=== PATIENT | male | born 1975 | race African-American/Black ===

== ENCOUNTER 2020-10-21 14:21 | Emergency (ER) | payer OTHER, BC, SELFPAY ==
--- NOTE | ~2020-10-21 | XR_ITS ---
EXAMINATION: XR foot LT min 3V DATE: 10/21/2020 14:41 INDICATION: Medial left foot pain post running injury TECHNIQUE: Dorsoplantar, two oblique and lateral views of the left foot were obtained. COMPARISON: None. FINDINGS: Alignment is normal. No fracture. Joint spaces are normal with tiny marginal osteophytes at the head of the first metacarpal consistent with minimal osteoarthritis. Moderate-sized plantar calcaneal spur . Soft tissues are unremarkable. IMPRESSION: 1. Unchanged moderate-sized plantar calcaneal spur and minimal osteoarthritis at the first metatarsop halangeal joint. No acute osseous abnormality. Reviewed, dictated and finalized at location [facility]. IMPRESSION: 1. Unchanged moderate-sized plantar calcaneal spur and minimal osteoarthritis a t the first metatarsophalangeal joint. No acute osseous abnormality.
[2020-10-21 14:27] VITALS: BP 124/79; PULSE 70; RESP 20; TEMP 36.4; O2SAT 100
--- NOTE | 2020-10-21 15:15 | ED.LOWEXIN ---
HPI - Extremity Injury (Lower) General Chief Complaint: Extremity Injury, Lower Stated Complaint: foot pain Time Seen by Provider: 10/21/20 15:09 Source: RN notes reviewed History of Present Illness HPI Narrative: Patient presents emergency department from home for left foot pain. He states symptoms began early this morning when he was at work and the patient turned to go run to grab something and felt a pop in the base of his left foot states that since that time he is had pain in the area which hurts to step on her to stretch out the left foot he denies any other trauma or injury denies falling on the foot he denies taking pain medication for the symptoms Related Data Allergies Allergy/AdvReac Type Severity Reaction Status Date / Time CYCLOBENZAPRINE HCL Allergy Mild SEIZURE Uncoded 10/21/20 15:05 SHELLFISH Allergy Mild RASH Uncoded 05/09/18 08:07 Review of Systems Review of Systems: Narrative: Gen.: Denies fevers or chills Musculoskeletal: See HPI Neuro: Denies numbness, tingling, weakness Skin: Denies rash Endo: Denies DM PMFSH Past Medical History Medical History (Updated 10/21/20 @ 15:17 by Neto Andre DO) Patient denies significant medical history Family History Family History (Updated 11/26/15 @ 23:21 by DOCTOR UNKNOWN) Father Patient's father is in good health Other Diabetes mellitus Hypertension Social History Social History Smoking status: Never smoker Second hand tobacco smoke exposure: No Alcohol intake: never Exam Narrative: Exam Narrative: APPEARANCE: No acute distress, nontoxic, resting in bed Eyes: EOMI HEENT: Normocephalic, atraumatic, RESPIRATORY: No respiratory distress MUSCULOSKELETAl: Tender to palpation over the base of the left foot in the area of the plantar fascia point tenderness in this region as well as with stepping on the foot no tenderness over the dorsal foot no tenderness over the medial or lateral malleolus dorsalis pedis pulse 2+ neurovascular intact NEURO: Awake and alert. Following commands, speech normal, no focal deficits SKIN:: Warm, dry. Normal Color no rash or lesions Course Course Emergency Course: Discussed with patient results of workup and diagnosis. Discussed need for follow-up with primary care, proper use of medication, and reasons to return to the emergency department. Patient understands and agrees to current treatment plan Vital Signs Vital signs: Vital Signs Temperature 97.6 F 10/21/20 14:27 Pulse Rate 70 10/21/20 14:27 Respiratory Rate 20 10/21/20 14:27 Blood Pressure 124/79 10/21/20 14:27 Pulse Oximetry 100 10/21/20 14:27 Temperature 97.6 F 10/21/20 14:27 Pulse Rate 70 10/21/20 14:27 Respiratory Rate 20 10/21/20 14:27 Blood Pressure 124/79 10/21/20 14:27 Pulse Oximetry 100 10/21/20 14:27 MDM - Extremity Injury (Lower) MDM Narrative Medical decision making narrative: Patient with tenderness at the base of the foot feel patient likely has plantar fasciitis or mild tear of the plantar fascia will treat with NSAIDs and rest for follow-up as an outpatient Imaging Data Radiologist's impression: ITS Impressions Foot X-Ray 10/21/20 14:43 IMPRESSION: 1. 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 No acute osseous abnormality. Discharge Plan Discharge Clinical Impression: Sprain of foot, left Patient Disposition: Home, Self-Care Condition: Stable Instructions: Antibiotic Form, Plantar Fasciitis (ED), Foot Sprain (ED) Additional Instructions: Return for increasing pain numbness or tingling in the extremities or any other symptoms of concern Prescriptions: New ibuprofen [IBU] 600 mg tablet 600 mg PO Q6H PRN (Reason: pain) Qty: 20 RF: 0 Follow-up/Referrals: Gladis Higginbotham MD [Primary Care Provider] - 2 Days Stand Alone Forms: Work/
== END 2020-10-21 15:56 | disposition home or self-care (01) ==
LOC: ANHED 15:28
PROVIDERS: Emergency Provider Emergency Medicine; PCP Family Medicine
DX: S93.602A Unspecified sprain of left foot, initial encounter (principal); X58.XXXA Exposure to other specified factors, initial encounter; Y99.0 Civilian activity done for income or pay
CPT/HCPCS: 73630; 99283

== ENCOUNTER 2021-03-12 16:04 | Emergency (ER) | payer BC, SELFPAY ==
[2021-03-12 16:19] VITALS: BP 138/81; PULSE 79; RESP 18; TEMP 37.3; O2SAT 100
--- NOTE | 2021-03-12 16:31 | ED.SKABFB ---
HPI - Skin/Abscess/Foreign Bdy General Chief complaint: Wound/Laceration Stated complaint: lip injury Source: patient and RN notes reviewed Limitations: no limitations History of Present Illness HPI narrative: The patient, a secretary of police and prior , presents with wound check. Patient states his immunizations are UTD, and he sustained a minor puncture wound to his upper lip mucosa from a stick and would like determine if he needs stitches. He complains of mild pain and bleeding that has resolved. No other injury, dental involvement; symptoms are mild , and the wound approximates itself Related Data Allergies Allergy/AdvReac Type Severity Reaction Status Date / Time CYCLOBENZAPRINE HCL Allergy Mild SEIZURE Uncoded 03/12/21 16:58 SHELLFISH Allergy Mild RASH Uncoded 03/12/21 16:58 Review of Systems Review of Systems: General/Constitutional: No weight loss,fever Eyes: N0: Redness,discharge Ears/Nose/Throat: No: Epistaxis,ear discharge Respiratory: Denies: Hemoptysis Gastrointestinal: No Vomiting, Bleeding-rectal Skin: No Lumps, eruption Neurologic: No Focal Weakness,Sz Hematologic: Denies: Petechiae/Purpura Psychiatric: No: Suicida ideationl All Other Systems: Reviewed and Negative [facility] Past Medical History Medical History (Updated 03/13/21 @ 00:02 by Danyell Trent) Patient denies significant medical history Family History Family History (Updated 11/26/15 @ 23:21 by DOCTOR UNKNOWN) Father Patient's father is in good health Other Diabetes mellitus Hypertension Social History Social History Smoking status: Never smoker Second hand tobacco smoke exposure: No Alcohol intake: never Comments At time of signature, agree with nursing past medical, surgical, social and family history. There is no relevant family history pertinent to the presenting complaint Exam Narrative: General Appearance: Well appearing, Conjunctiva clear Ears: External ear normal, Auditory canal normal Nose: Normal nose Mouth/Throat: mild upper lip swelling; 2 to 3 mm, well approximating puncture wound upper lip internal/before wet line, Neck: Supple, No adenopathy,MM moist, Uvula midline Respiratory: Airway patent, No respiratory distress, Clear to auscultation Musculoskeletal: Full ROM, Non tender, Normal strength, Warm, Dry, Normal color Neurological: A&O x3, l affect Course Vital Signs Vital signs: Vital Signs Temperature 99.1 F 03/12/21 16:19 Pulse Rate 79 03/12/21 16:19 Respiratory Rate 18 03/12/21 16:19 Blood Pressure 138/81 03/12/21 16:19 Pulse Oximetry 100 03/12/21 16:19 Temperature 99.1 F 03/12/21 16:19 Pulse Rate 79 03/12/21 16:19 Respiratory Rate 18 03/12/21 16:19 Blood Pressure 138/81 03/12/21 16:19 Pulse Oximetry 100 03/12/21 16:19 Discharge Plan Discharge Clinical Impression: Encounter for post-traumatic wound check, History of facial injury Patient Disposition: Home, Self-Care Condition: Stable Instructions: Puncture Wound (ED) Prescriptions: New lidocaine HCl [Lidocaine Viscous] 2 % solution 5 ml MUCOUS MEM QID PRN (Reason: pain) Qty: 100 RF: 0 mupirocin 2 % ointment 1 applic TOPICAL TID Qty: 30 RF: 0 cephalexin 500 mg capsule 1,000 mg PO Q12H 3 Days Qty: 12 RF: 0 No Action ibuprofen [IBU] 600 mg tablet 600 mg PO Q6H PRN (Reason: pain) Qty: 20 RF: 0 Follow-up/Referrals: Gladis Higginbotham MD [Primary Care Provider] -
== END 2021-03-12 16:36 | disposition home or self-care (01) ==
PROVIDERS: Emergency Provider Emergency Medicine; PCP Family Medicine
DX: S01.531A Puncture wound without foreign body of lip, initial encounter (principal); X58.XXXA Exposure to other specified factors, initial encounter
CPT/HCPCS: 99213; G0463

== ENCOUNTER 2021-08-26 12:35 | Outpatient (CLI) | payer BC, SELFPAY ==
--- NOTE | ~2021-08-26 | US_ITS ---
US scrotum doppler DATE: 08/26/2021 13:59 INDICATION: Palpable mass of right scrotum near perineum TECHNIQUE: Real time and color flow imaging, doppler analysis COMPARISON: None FINDINGS: The right testicle measures 4.7 x 3.0 x 2.1 cm. The left testicle measures 5.0 x 3.7 x 2.4 cm No testicular mass lesion or torsion is detected. Small left hydrocele. Approximately 9 x 19 mm soft tissue mass with vascularity in the right inferior scrotal area near per ineum. IMPRESSION: Nonspecific right approximately 9 x 18 mm inferior scrotal mass with internal vascularity No testicular mass or torsion Reviewed, dictated and finalized at [facility]. Reviewed, dictated and finalized at location [facility]. IMPRESSION: Nonspecific right approximately 9 x 18 mm inferior scrotal mass wit h internal vascularity No testicular mass or torsion
== END 2021-08-26 12:36 | disposition home or self-care (01) ==
LOC: ANHIMG 12:38
PROVIDERS: PCP Family Medicine; Visit Provider Physician Assistant Medical
DX: N50.89 Other specified disorders of the male genital organs (principal)
CPT/HCPCS: 76870; 93976

== ENCOUNTER 2021-10-08 11:46 | Emergency (ER) | payer BC, SELFPAY ==
[2021-10-08 11:56] VITALS: BP 146/75; PULSE 64; RESP 18; TEMP 37.1; O2SAT 99
--- NOTE | 2021-10-08 11:59 | ED.GENADULT ---
HPI - General Adult General Chief complaint: Wound/Laceration Stated complaint: laceration History of Present Illness HPI narrative: 46-year-old male patient presents to the [facility] with complaints of a laceration to the right thumb. Patient states he was taking out the trash today and cut his thumb on the top of a jimenez can. Patient denies any numbness or tingling to the tip of the finger. Patient states he did not clean it prior to coming in because [place] so close. Patient unaware of when his last tetanus shot was. Related Data Home Medications Medication Instructions Recorded Confirmed No Home Medications 10/08/21 10/08/21 Allergies Allergy/AdvReac Type Severity Reaction Status Date / Time CYCLOBENZAPRINE HCL Allergy Mild SEIZURE Uncoded 10/08/21 12:03 SHELLFISH Allergy Mild RASH Uncoded 10/08/21 12:03 Review of Systems Review of Systems: CONSTITUTIONAL: Denies fever, chills, or sweats. EYES: Denies visual changes, redness, or discharge. ENT: Denies rhinorrhea, congestion, sore throat, or otalgia. CARDIOVASCULAR: Denies chest pain, palpitations, or edema. RESPIRATORY: Denies cough or dyspnea. GASTROINTESTINAL: Denies abdominal pain, nausea, vomiting, or diarrhea. GENITOURINARY: Denies dysuria or hematuria. SKIN: Denies rash or itching. MUSCULOSKELETAL: Denies back pain, joint pain, or myalgia. NEUROLOGIC: Denies headache, numbness, or weakness. PSYCHIATRIC: Denies anxiety or depression. [facility] Past Medical History Medical History (Updated 10/08/21 @ 12:24 by PHIL Jaimes) Asthma Bowel obstruction Patient denies significant medical history Scrotal mass Surgical History Surgical History (Updated 10/08/21 @ 12:01 by PHIL Jaimes) H/O foot surgery Previous back surgery 2007 herniated disc Family History Family History Father Patient's father is in good health Other Diabetes mellitus Hypertension Social History Social History Smoking status: Never smoker Second hand tobacco smoke exposure: No Alcohol intake: never Substance use: never Gender identity (if verbalized by the patient): Male Sexual Orientation (if Verbalized by the Patient): Straight or Heterosexual Spiritual care concerns: No Agree to blood products: Yes Comments At the time of my signature I agree with nursing past medical history, surgical, social, and family history. There is no relevant family history pertinent to the presenting complaint. Exam Narrative: GENERAL: Well-appearing, well-nourished, and in no acute distress. HEAD: Normocephalic, atraumatic. EYES: PERRLA and EOMI. ENT: Nares clear, no rhinorrhea or epistaxis. Mucous membranes moist. NECK: Supple. No lymphadenopathy CHEST: Clear to auscultation. No respiratory distress. HEART: Regular rate and rhythm. No murmur heard. Normal peripheral pulses. ABDOMEN: Soft, nontender, nondistended, normal active bowel sounds. EXTREMITIES: Normal range of motion. No edema. SKIN: Warm, dry, no rash. Patient has approximately 2.5 cm linear laceration to the lateral side of the left thumbnail. No nail involvement. The laceration is superficial and no gaping wounds are noted. There is bleeding present. NEURO: No focal deficits. Alert and oriented x3. Course Course Level of Care: Express Care Visit Vital Signs Vital signs: Vital Signs Temperature 37.1 C 10/08/21 11:56 Pulse Rate 64 10/08/21 11:56 Respiratory Rate 18 10/08/21 11:56 Blood Pressure 146/75 H 10/08/21 11:56 Pulse Oximetry 99 10/08/21 11:56 Oxygen Delivery Room Air 10/08/21 11:56 Temperature 37.1 C 10/08/21 11:56 Pulse Rate 64 10/08/21 11:56 Respiratory Rate 18 10/08/21 11:56 Blood Pressure 146/75 H 10/08/21 11:56 Pulse Oximetry 99 10/08/21 11:56 Oxygen Delivery Room Air 10/08/21 11:56 Vital signs reviewed The patien
[2021-10-08] MEDS: TETANUS,DIPHTHERIA,AC PERTUSSIS ADULT (0.5 ML) BOOSTRIX IM (12:07)
== END 2021-10-08 12:34 | disposition home or self-care (01) ==
PROVIDERS: Emergency Provider Nurse Practitioner Family; PCP Family Medicine
DX: S61.011A Laceration without foreign body of right thumb without damage to nail, initial encounter (principal); W45.8XXA Other foreign body or object entering through skin, initial encounter; Z23 Encounter for immunization; J45.909 Unspecified asthma, uncomplicated
CPT/HCPCS: 12001; 90471; 90715; 99212; G0463

== ENCOUNTER 2022-12-21 00:09 | Day surgery (SDC) | payer BC, SELFPAY ==
[2022-12-07 12:38] VITALS: BMI 27.8
[2022-12-21 06:54] VITALS: BP 128/87; PULSE 59; RESP 16; TEMP 36.4; O2SAT 100
[2022-12-21] MEDS: LACTATED RINGERS 1,000 ML 150 ML IV CONT (07:04)
--- NOTE | 2022-12-21 07:27 | PM.HPGS ---
History of Present Illness History of Present Illness Consent: Risks, benefits, and alternatives have been discussed and questions answered. Patient agrees to proceed with procedure. Chief complaint: neoplasm screening Narrative: Ho Roger is a 47 year old male Presents for screening colonoscopy. Patient reports that his own weight appetite and bowel movements are normal. Patient denies abdominal pain. He has had no bleeding. Family history is significant that his father had colon cancer. Patient's most recent colonoscopy 2018 was unremarkable. Review of Systems Review of Systems: Review of systems noncontributory. PMFSH Past Medical History Medical History Asthma Bowel obstruction Patient denies significant medical history Scrotal mass Surgical History Surgical History H/O foot surgery Previous back surgery 2007 herniated disc Family History Family History Father Carcinoma of colon Other Diabetes mellitus Hypertension Social History Social History Smoking status: Former smoker Tobacco type: cigarettes Second hand tobacco smoke exposure: No Alcohol intake: never Substance use: never Substance use type: does not use Lack of Transportation: No Lack of Food: Never True Current Housing: I Have Housing Concerned About Future Housing: No Difficulty Paying Gas/Electric Bills: No Difficulty Paying for Meds: No Currently Unemployed: No Education: High School Diploma/GED Difficulty w/ Childcare or Family Care: No Living arrangements: with family Gender identity (if verbalized by the patient): Male Sexual Orientation (if Verbalized by the Patient): Straight or Heterosexual Spiritual care concerns: No Agree to blood products: Yes Meds Home Medications and Allergies Home Medications Medication Instructions Recorded Confirmed Type cholecalciferol (vitamin D3) 25 25 mcg PO DAILY 12/07/22 12/21/22 History mcg (1,000 unit) tablet (Vitamin D3) glucosamine sulfate 500 mg tablet 500 mg PO DAILY 12/07/22 12/21/22 History (Glucosamine) krill 500 mg-omega-3 150 mg-dha 45 1 cap PO DAILY 12/07/22 12/21/22 History mg-epa 75 [id number]-pbaqk capsule (krill oil) tumeric 100 mg-kristin 150 mg-olive 1 cap PO DAILY 12/07/22 12/21/22 History 50 mg-oreg 150 mg-caprylate capsule Allergies Allergy/AdvReac Type Severity Reaction Status Date / Time cyclobenzaprine Allergy Severe Seizure Verified 12/21/22 06:52 shellfish derived Allergy Severe Rash Verified 12/21/22 06:52 Vital Signs Vital Signs - 24 hr 12/21/22 06:54 Temperature 97.5 F L Pulse Rate 59 L Respiratory Rate 16 Blood Pressure 128/87 Pulse Oximetry 100 Oxygen Delivery Room Air Exam Narrative: Physical exam reveals patient to be alert. Vital signs stable. HEENT exam is unremarkable. Patient is anicteric. Lungs are clear to auscultation and percussion. Heart is without murmur or extra sounds. Abdomen bowel sounds are present soft nontender with no organomegaly. Digital external rectal exam normal. Assessment and Plan Assessment and plan (1) Family history of colon cancer in father: Code(s): Z80.0 - Family history of malignant neoplasm of digestive organs Status: Acute Assessment and Plan: Patient's father had colon cancer. For this reason colonoscopy will be performed. Plan for follow-up colonoscopy in 5 years.
--- NOTE | 2022-12-21 07:43 | WPDANESEPPF ---
Anes - Initial Pre Proc Eval Procedure: Operation Date: 12/21/22 08:00 Proposed Procedures p Screening Colonoscopy - Ahsan Olmstead MD Date/Time: 12/21/22 07:43 Surgeon: Ahsan Olmstead MD Pre Op Diagnosis: neoplasm screening Patient Data Age: 47 Gender: M Height: 1.85 m Weight: 92 kg Last Vital Signs Temp 36.4 C L 12/21/22 06:54 Pulse 59 L 12/21/22 06:54 Resp 16 12/21/22 06:54 BP 128/87 12/21/22 06:54 Pulse Ox 100 12/21/22 06:54 O2 Del Method Room Air 12/21/22 06:54 Allergies Allergy/AdvReac Type Severity Reaction Status Date / Time cyclobenzaprine Allergy Severe Seizure Verified 12/21/22 06:52 shellfish derived Allergy Severe Rash Verified 12/21/22 06:52 Home Medications Medication Instructions Recorded Confirmed Type cholecalciferol (vitamin D3) 25 25 mcg PO DAILY 12/07/22 12/21/22 History mcg (1,000 unit) tablet (Vitamin D3) glucosamine sulfate 500 mg tablet 500 mg PO DAILY 12/07/22 12/21/22 History (Glucosamine) krill 500 mg-omega-3 150 mg-dha 45 1 cap PO DAILY 12/07/22 12/21/22 History mg-epa 75 hf-skhnkda-wjadt capsule (krill oil) tumeric 100 mg-kristin 150 mg-olive 1 cap PO DAILY 12/07/22 12/21/22 History 50 mg-oreg 150 mg-caprylate capsule Patient hx anesthesia problems: none Family hx anesthesia problems: none Results Review: All pre-operative results and documents have been reviewed as part of the pre-operative evaluation. [facility] Past Medical History Medical History Asthma Bowel obstruction Patient denies significant medical history Scrotal mass Surgical History Surgical History H/O foot surgery Previous back surgery 2007 herniated disc Family History Family History Father Carcinoma of colon Other Diabetes mellitus Hypertension Social History Social History Smoking status: Former smoker Tobacco type: cigarettes Second hand tobacco smoke exposure: No Alcohol intake: never Substance use: never Substance use type: does not use Lack of Transportation: No Lack of Food: Never True Current Housing: I Have Housing Concerned About Future Housing: No Difficulty Paying Gas/Electric Bills: No Difficulty Paying for Meds: No Currently Unemployed: No Education: High School Diploma/GED Difficulty w/ Childcare or Family Care: No Living arrangements: with family Gender identity (if verbalized by the patient): Male Sexual Orientation (if Verbalized by the Patient): Straight or Heterosexual Spiritual care concerns: No Agree to blood products: Yes Anes - Eval Final PreProcedure Day of Procedure 12/21/22 07:43 Patient weight: normal Heart: regular rate and rhythm Lungs: clear to auscultation Airway: Mallampati scale class II Neurological: alert and oriented Last oral intake: >/= 8 hours ASA classification: II Emergent: no Anesthetic plan: proceed Anesthesia type and monitoring: general GIVS and standard monitoring Results Review: All pre-operative results and documents have been reviewed as part of the pre-operative evaluation. Informed Consent: The patient's anesthetic plan and its attendant risks and benefits were discussed with the patient/family/POA. Questions were solicited and answers provided to the satisfaction of the patient/family/POA.
[2022-12-21 08:27] VITALS: BP 109/66; PULSE 68; RESP 16; O2SAT 100
[2022-12-21 08:37] VITALS: BP 111/67; PULSE 56; RESP 18; O2SAT 100
[2022-12-21 08:47] VITALS: BP 114/72; PULSE 58; RESP 18; O2SAT 100
== END 2022-12-21 08:55 | disposition home or self-care (01) ==
PROVIDERS: PCP Family Medicine; Visit Provider Internal Medicine Gastroenterology
PROC: 0DJD8ZZ Inspection of Lower Intestinal Tract, Via Natural or Artificial Opening Endoscopic (ICD-10-PCS; CPT 45378; principal; 2022-12-21 08:00)
DX: Z12.11 Encounter for screening for malignant neoplasm of colon (principal); K64.8 Other hemorrhoids; Z80.0 Family history of malignant neoplasm of digestive organs; Z87.891 Personal history of nicotine dependence
CPT/HCPCS: 45378; J2704; J7120

== ENCOUNTER 2024-06-14 11:04 | Emergency (ER) | payer BC, SELFPAY ==
--- OUTSIDE RECORDS SUMMARY | 2024-06-14 11:05 | XMS_ITS | Referral Summary ---
Author Organization [facility] Address [address] [place] [address] Care Team Providers Care Electric Cutter Operator Name Role Phone Unavailable Primary Care Provider Unavailabl e Source Comments [facility],non-owned Affiliates and Associated Physician Practices is amultiple site organization consisting of ambulatory clinics and hospital sitesin [place], [place], [place] and [place]. This disclosure is being madepursuant to the Care Everywhere program and may not contain all information available regarding this patient. Last updated 18.[facility] Allergies Active Allergy Reactions Criticality Noted Date Comments Cyclobenzaprine Other Low 04/19/2015 Seizure, hives, Social History Tobacco Use Types Packs/Day Years Used Date Smoking Tobacco: Never Alcohol Use Standard Drinks/Week Comments No 0 (1 standard drink = 0.6 oz pur e alcohol) Sex and Gender Information Value Date Recorded Sex Assigned at Not on file Gender Identity Not on file Sexual Orientation Not on file Last Filed Vital Signs Vital Sign Reading Time Taken Comments Blood Pressure 132/82 04/19/2015 1:00 PM BUSINESS INSURANCE AGENT Pulse 68 04/19/2015 1:00 PM BUSINESS INSURANCE AGENT Temperature 36.6 C (97.9 F) 04/19/2015 12:35 PM BUSINESS INSURANCE AGENT Respiratory Rate 12 04/19/2015 12:35 PM BUSINESS INSURANCE AGENT Oxygen Saturation 100% 04/19/2015 1:00 PM BUSINESS INSURANCE AGENT Inhaled Oxygen Concentration - - Weight 91.6 kg (202 lb) 04/19/2015 12:35 PM BUSINESS INSURANCE AGENT Height 185.4 cm (6' 1 ) 04/19/2015 12:35 PM BUSINESS INSURANCE AGENT Body Mass Index 26.65 04/19/2015 12:35 PM BUSINESS INSURANCE AGENT Plan of Treatment Not on file
--- OUTSIDE RECORDS SUMMARY | 2024-06-14 11:05 | XMS_ITS | Clinical Summary ---
Author Organization [facility] Address [address] [place] [address] Care Team Providers Care Test Operator Name Role Phone Unavailable Primary Care Provider Unavailabl e Source Comments [facility],non-owned Affiliates and Associated Physician Practices is amultiple site organization consisting of ambulatory clinics and hospital sitesin [place], [place], [place] and [place]. This disclosure is being madepursuant to the Care Everywhere program and may not contain all information available regarding this patient. Last updated 18.[facility] Allergies Active Allergy Reactions Criticality Noted Date [...] Comments Blood Pressure 132/82 04/19/2015 1:00 PM FORESTRY TECHNICAL OFFICER Pulse 68 04/19/2015 1:00 PM FORESTRY TECHNICAL OFFICER Temperature 36.6 C (97.9 F) 04/19/2015 12:35 PM FORESTRY TECHNICAL OFFICER Respiratory Rate 12 04/19/2015 12:35 PM FORESTRY TECHNICAL OFFICER Oxygen Saturation 100% 04/19/2015 1:00 PM FORESTRY TECHNICAL OFFICER Inhaled Oxygen Concentration - - Weight 91.6 kg (202 lb) 04/19/2015 12:35 PM FORESTRY TECHNICAL OFFICER Height 185.4 cm (6' 1 ) 04/19/2015 12:35 PM FORESTRY TECHNICAL OFFICER Body Mass Index 26.65 04/19/2015 12:35 PM FORESTRY TECHNICAL OFFICER Plan of Treatment Health Maintenance Due Date Last Done Comments COLOGUARD (AGES 45-75) - COL ON CA SCREENING 1976 COLON MONITORING 1976 COLONOSCOPY - COLON CA SCREENING 1976 CT COLONOGRAPHY - COLON CA SCREENING 1976 Colorectal Cancer Screening 1976 FIT - COLON CA SCREENING 1976 FLEX SIG - COLON CA SCREENING 1976 LIPID TESTING 1976 HIV SCREENING 07/29/1991 HEPATITIS C SCREENING 07/24/1994 DTAP/TDAP/TD VACCINES (1 - Tdap) 07/29/1995 HEPATITIS B VACCINE (1 of 3 - 19+ 3-dose series) 07/29/1995 COVID-19 VACCINE (1 - 2023-2 5 season) 2023 INFLUENZA VACCINE (#1) 2023 DEPRESSION SCREENING 04/30/2024 ZOSTER VACCINE (1 of 2) 2026 HIB VACCINE Aged Out No longer eligi ble based on patient's age to complete this topic HPV VACCINE Aged Out No longer eligi ble based on patient's age to complete this topic MENINGOCOCCAL (Group B) VACCINE Aged Out No longer eligible based on patient's age to complete this topic MENINGOCOCCAL VACCINE Aged Out No marion angela eligible based on patient's age to complete this topic PNEUMOCOCCAL VACCINE Aged Out No long er eligible based on patient's age to complete this topic
--- OUTSIDE RECORDS SUMMARY | 2024-06-14 11:05 | XMS_ITS | Patient Health Summary ---
Author Organization [facility] Address [address] [place] [address] Care Team Providers Care Bridge Ironworker Name Role Phone Unavailable Primary Care Provider Unavailabl e Note from [facility],non-owned Affiliates and Associated Physician Practices is amultiple site organization consisting of ambulatory clinics and hospital sitesin [place], [place], [place] and [place]. This disclosure is being madepursuant to the Care Everywhere program and may not contain all information available regarding this patient. Last updated 18.[facility] Allergies * Cyclobenzaprine(Other) -Low Criticality Social History Tobacco Use Types Packs/Day Years [...] Comments Blood Pressure 132/82 04/19/2015 1:00 PM COMMERCIAL LITIGATION ATTORNEY Pulse 68 04/19/2015 1:00 PM COMMERCIAL LITIGATION ATTORNEY Temperature 36.6 C (97.9 F) 04/19/2015 12:35 PM COMMERCIAL LITIGATION ATTORNEY Respiratory Rate 12 04/19/2015 12:35 PM COMMERCIAL LITIGATION ATTORNEY Oxygen Saturation 100% 04/19/2015 1:00 PM COMMERCIAL LITIGATION ATTORNEY Inhaled Oxygen Concentration - - Weight 91.6 kg (202 lb) 04/19/2015 12:35 PM COMMERCIAL LITIGATION ATTORNEY Height 185.4 cm (6' 1 ) 04/19/2015 12:35 PM COMMERCIAL LITIGATION ATTORNEY Body Mass Index 26.65 04/19/2015 12:35 PM COMMERCIAL LITIGATION ATTORNEY
[2024-06-14 11:32] VITALS: BP 132/74; PULSE 77; RESP 18; TEMP 36.9; O2SAT 100
--- NOTE | 2024-06-14 11:36 | ED.URI ---
HPI - URI/Sore Throat General Chief Complaint: Upper Respiratory Infection Stated Complaint: flu symptoms Time Seen by Provider: 06/14/24 11:07 Source: patient Mode of arrival: ambulatory Limitations: no limitations History of Present Illness HPI Narrative: Patient is a 48-year-old male who presents with 2 days of body aches, dry cough trauma fever, it pain. Patient has been taking TheraFlu and ibuprofen. Send daughter both have flu. Denies any nausea, vomiting, diarrhea. Related Data Home Medications ?Medication ?Instructions ?Recorded ?Confirmed ?Last Taken ?Type cholecalciferol (vitamin D3) 25 25 mcg PO DAILY 12/07/22 10/05/23 11/28/22 History mcg (1,000 unit) tablet (Vitamin D3) krill 500 mg-omega-3 150 mg-dha 45 1 cap PO DAILY 12/07/22 10/05/23 11/28/22 History mg-epa 75 [id number] capsule (krill oil) Allergies Allergy/AdvReac Type Severity Reaction Status Date / Time cyclobenzaprine Allergy Severe Seizure Verified 06/14/24 12:25 shellfish derived Allergy Severe Rash Verified 06/14/24 12:25 Review of Systems Review of Systems: All systems reviewed & are unremarkable except as noted in HPI and below Constitutional: Constitutional: Denies chills, Denies fatigue, Reports fever(s), Denies headache(s), Denies malaise and Denies weakness Eyes: Eyes: Denies blurry vision, Denies itchy eyes, Denies loss of vision and Reports eye pain ENT: Denies otalgia, Denies headache(s), Denies nasal congestion, Denies sinus pain and Denies sore throat Cardiovascular: Cardiovascular: Denies chest pain, Denies irregular heart rhythm and Denies dyspnea Respiratory: Respiratory: Reports cough and Denies dyspnea Gastrointestinal: Gastrointestinal: Denies abdominal pain, Denies diarrhea, Denies nausea and Denies vomiting Musculoskeletal: Musculoskeletal: Denies back pain, Reports myalgias and Denies arthralgias Integumentary/Breasts: Skin/Breast: Denies pruritus and Denies rash Neurologic: Denies headache(s), Denies loss of vision and Denies weakness Psychiatric: Psychiatric: Reports no additional psychiatric complaints Endocrine: Endocrine: Denies fatigue Allergic/Immunologic: Allergic/Immunologic: Denies itchy eyes PMFSH Past Medical History Medical History Bowel obstruction Asthma Scrotal mass Patient denies significant medical history Surgical History Surgical History H/O foot surgery Previous back surgery 2007 herniated disc Family History Family History Father Carcinoma of colon Other Diabetes mellitus Hypertension Social History Social History Smoking status: Former smoker Tobacco type: cigarettes Second hand tobacco smoke exposure: No Alcohol intake: never Substance use: never Substance use type: does not use Lack of Transportation: No Lack of Food: Never True Current Housing: I Have Housing Concerned About Future Housing: No Difficulty Paying Gas/Electric Bills: No Difficulty Paying for Meds: No Currently Unemployed: No Education: High School Diploma/GED Difficulty w/ Childcare or Family Care: No Living arrangements: with family Gender identity (if verbalized by the patient): Male Sexual Orientation (if Verbalized by the Patient): Straight or Heterosexual Spiritual care concerns: No Agree to blood products: Yes Comments At time of signature, agree with nursing past medical, surgical, social and family history. There is no relevant family history pertinent to the presenting complaint. Exam Const: General: cooperative, healthy appearing, comfortable, no acute distress and well nourished Nutritional Appearance: well nourished Orientation/consciousness: patient oriented x3 Limitations: no limitations HENMT: Head: normal to inspection, normocephalic and atraumatic Ears: hearing grossly normal bilaterally, external ears normal, TM's normal bilaterally, no periauricular adenopathy and Abnormal EAC present excessive cerumen on the left Face/Nose/Sinus: Normal external nose present, Abnormal mucous membranes and turbinates present erythematous bilateral and diffuse, normal facial exam, sinuses nontender and face symmetric Face and sinus: normal facial exam, sinuses nontender and face symmetric Mouth: Yes Normal oral and palatal mucosa present, Yes lip normal, Yes tongue normal, Yes Normal salivary glands and ducts present, Yes oropharynx normal and Yes moist mucous membranes Teeth and gingiva: dentition normal Throat: posterior oropharynx normal, tonsils normal and uvula midline Eyes: General: appearance normal, both eyes and all related structures Alignment and Position: alignment normal and position normal Periorbital: periorbital findings normal Eyelids: eyelids normal Pupils: Equal, round and reactive pupils present Neck: Neck: normal visual inspection, full ROM, no lymphadenopathy and supple Chest: Chest palpation & inspection: normal inspection of the chest and normal palpation of entire chest wall Resp: Effort & Inspection: normal respiratory effort and able to speak in complete sentences Auscultation: clear to auscultation bilaterally, no crackles, no rales, no rhonchi and no wheezes Cardio: Rate: regular rate Rhythm: regular rhythm Heart sounds: S1 normal heart sound present and S2 normal heart sound present GI: Inspection: normal to inspection Skin: General skin exam: normal color and no rashes or lesions noted Neuro: General: patient oriented x3 and moves all extremities Cranial nerves: Yes Equal, round and reactive pupils present Speech: normal speech Gait exam (Neuro): Normal gait present Extrem: General: normal to inspection, full ROM and no edema Psych: Appearance: grossly normal and well kempt Mental Status: mental status grossly normal Speech and movement: Normal speech and movement present Affect: normal affect Attitude: cooperative Thought process: Normal thought process present Course Course Emergency Course: Discharge instructions reviewed with patient, as well as provided in writing per nursing staff. The instructions also include specific and strict return/GO TO THE ER as well as f/u information. All questions have been answered, and the patient deny any further questions with discharge and discharge plan. Portions of this record may have been created with voice recognition software Level of Care: Express Care Visit Vital Signs Vital signs: Vital Signs Temperature 36.9 C 06/14/24 11:32 Pulse Rate 77 06/14/24 11:32 Respiratory Rate 18 06/14/24 11:32 Blood Pressure 132/74 06/14/24 11:32 Pulse Oximetry 100 06/14/24 11:32 Oxygen Delivery Room Air 06/14/24 11:32 Temperature 36.9 C 06/14/24 11:32 Pulse Rate 77 06/14/24 11:32 Respiratory Rate 18 06/14/24 11:32 Blood Pressure 132/74 06/14/24 11:32 Pulse Oximetry 100 06/14/24 11:32 Oxygen Delivery Room Air 06/14/24 11:32 Reviewed MDM - URI/Sore Throat MDM Narrative Medical decision making narrative: Pt well hydrated appearing, in no respiratory distress, hemodynamically stable. Recommend supportive care. The patient is stable at time of discharge the clinical impression was discussed and the patient was given the opportunity to ask questions, which were addressed as completely as possible given the information available at present. Anticipatory guidance and return to care precautions were discussed and the importance of primary care follow-up was stressed and encouraged. The patient voiced understanding of the plan, indications to return, and the need for follow-up. Differential diagnosis considered: Bronchitis, Burrows virus, strep pharyngitis, allergic rhinitis, upper respiratory tract infection, sinusitis, rhinosinusitis, nasopharyngitis. viral pharyngitis, otitis media, otitis externa, otitis effusion, foreign body, cerumen impaction, viral syndrome, and influenza.? Exam findings show no acute concerns or changes; patient is non-toxic appearing and is in no distress.? Patient is appropriate for outpatient treatment and follow-up.? Medical Records Attestation: I reviewed the patient's medical records. Lab Data Attestation: I reviewed the patient's lab results. Labs: Lab Results 06/14/24 Range/Units 12:46 POC Influenza A Ag Negative (Negative) POC Influenza B Ag Negative (Negative) POC SARS CoV-2 Ag Negative (Negative) Discharge Plan Discharge Clinical Impression: Influenza-like illness Patient Disposition: Home, Self-Care Condition: Stable Instructions: Viral Syndrome (ED) Additional Instructions: Were negative for influenza and COVID. Your symptoms are due to a viral illness, which is not treated with antibiotics. Viral symptoms can be present for up to a few weeks. -For fever/pain, you may take: Tylenol 650-1000mg by mouth every 4-6 hours. Do not exceed 4000mg in 24 hours. Advil (Ibuprofen) 600 mg by mouth every 6 hours. Do not exceed 2400mg in 24 hours. 8 AM: Tylenol 11 AM: Ibuprofen 2 PM: Tylenol 5 PM: Ibuprofen 8 PM: Tylenol 11 PM: Ibuprofen 2 AM: Tylenol 5 AM: Ibuprofen -Antihistamine medication such as Benadryl/Zyrtec at night and Claritin/Radha during the day can help improve symptoms. -Use Flonase twice a day for 5 days then daily to help reduce the inflammation and dry up your sinuses. -You can also use Sudafed behind the pharmacy counter(12 or 24 hour). Be sure to drink plenty of water with these medications at least 8 ounces with every dose and it is important to drink 8 to 10 glasses of water per day. Water is a natural decongestant -Eat and drink things that are easy to swallow, like tea or soup, or popsicles. -Oral rinses such as: Salt water gargles and/or may use topical anesthetic (eg. Chloraseptic spray) or lozenges to relieve dryness or throat pain). -Frequent hand washing or hand shirt ironer supervisor is one of the best ways to prevent spread of infection. -Using a vaporizer or humidifier at night will also help thin secretions and help with coughing up phlegm. -Follow up with primary care provider in 3-5 days if condition is not improving - For new or worsening symptoms go directly to the nearest ER Patient Language: Citizen Of [place] Prescriptions: No Action cholecalciferol (vitamin D3) [Vitamin D3] 25 mcg (1,000 unit) Tablet 25 mcg PO DAILY krill oil 522-814-63-75 mg Capsule 1 cap PO DAILY Follow-up/Referrals: Gladis Higginbotham MD [Primary Care Provider] - 3 Days Stand Alone Forms: Work/School Release IP Time of Disposition: 12:54
[2024-06-14 12:49] LABS: EDCOVIDSCREEN Negative (Negative); EDINFLUASCREEN Negative (Negative); EDINFLUBSCREEN Negative (Negative)
== END 2024-06-14 12:58 | disposition home or self-care (01) ==
PROVIDERS: Emergency Provider Nurse Practitioner Family; PCP Family Medicine
DX: R05.9 Cough, unspecified (principal); R50.9 Fever, unspecified; Z20.822 Contact with and (suspected) exposure to COVID-19; Z87.891 Personal history of nicotine dependence
CPT/HCPCS: 87426; 87804; 99212; G0463

== ENCOUNTER 2024-07-05 11:57 | Emergency (ER) | payer BC, SELFPAY ==
--- OUTSIDE RECORDS SUMMARY | 2024-07-05 11:59 | XMS_ITS | Patient Health Summary ---
Author Organization [facility] Address [address] [place] [address] Care Team Providers Care Head Baker Name Role Phone Unavailable Primary Care Provider Unavailabl e Note from [facility],non-owned Affiliates and Associated Physician Practices is amultiple site organization consisting of ambulatory clinics and hospital sitesin [place], [place], [place] and [place]. This disclosure is being madepursuant to the Care Everywhere program and may not contain all information available regarding this patient. Last updated 18.[facility] Allergies * Cyclobenzaprine(Other) -Low Criticality Social History [...] Comments Blood Pressure 132/82 04/19/2015 1:00 PM FINAL TOUCH UP PAINTER Pulse 68 04/19/2015 1:00 PM FINAL TOUCH UP PAINTER Temperature 36.6 C (97.9 F) 04/19/2015 12:35 PM FINAL TOUCH UP PAINTER Respiratory Rate 12 04/19/2015 12:35 PM FINAL TOUCH UP PAINTER Oxygen Saturation 100% 04/19/2015 1:00 PM FINAL TOUCH UP PAINTER Inhaled Oxygen Concentration - - Weight 91.6 kg (202 lb) 04/19/2015 12:35 PM FINAL TOUCH UP PAINTER Height 185.4 cm (6' 1 ) 04/19/2015 12:35 PM FINAL TOUCH UP PAINTER Body Mass Index 26.65 04/19/2015 12:35 PM FINAL TOUCH UP PAINTER
--- OUTSIDE RECORDS SUMMARY | 2024-07-05 11:59 | XMS_ITS | Referral Summary ---
Author Organization [facility] Address [address] [place] [address] Care Team Providers Care Commissioned Police Officer Name Role Phone Unavailable Primary Care Provider Unavailabl e Source Comments [facility],non-owned Affiliates and Associated Physician Practices is amultiple site organization consisting of ambulatory clinics and hospital sitesin [place], [place], [place] and [place]. This disclosure is being madepursuant to the Care Everywhere program and may not contain all information available regarding this patient. Last updated 18.[facility] [email or web address] Allergies Active Allergy Reactions Criticality Noted Date [...] Comments Blood Pressure 132/82 04/19/2015 1:00 PM PRODUCTION CONTROL MANAGER Pulse 68 04/19/2015 1:00 PM PRODUCTION CONTROL MANAGER Temperature 36.6 C (97.9 F) 04/19/2015 12:35 PM PRODUCTION CONTROL MANAGER Respiratory Rate 12 04/19/2015 12:35 PM PRODUCTION CONTROL MANAGER Oxygen Saturation 100% 04/19/2015 1:00 PM PRODUCTION CONTROL MANAGER Inhaled Oxygen Concentration - - Weight 91.6 kg (202 lb) 04/19/2015 12:35 PM PRODUCTION CONTROL MANAGER Height 185.4 cm (6' 1 ) 04/19/2015 12:35 PM PRODUCTION CONTROL MANAGER Body Mass Index 26.65 04/19/2015 12:35 PM PRODUCTION CONTROL MANAGER Plan of Treatment Not on file
--- OUTSIDE RECORDS SUMMARY | 2024-07-05 11:59 | XMS_ITS | Clinical Summary ---
Author Organization [facility] Address [address] [place] [address] Care Team Providers Care Labor Expediter Name Role Phone Unavailable Primary Care Provider Unavailabl e Source Comments [facility],non-owned Affiliates and Associated Physician Practices is amultiple site organization consisting of ambulatory clinics and hospital sitesin [place], [place], [place] and [place]. This disclosure is being madepursuant to the Care Everywhere program and may not contain all information available regarding this patient. Last updated 18.[facility] [employer] Allergies Active Allergy Reactions Criticality Noted Date [...] Comments Blood Pressure 132/82 04/19/2015 1:00 PM WARP KNITTER Pulse 68 04/19/2015 1:00 PM WARP KNITTER Temperature 36.6 C (97.9 F) 04/19/2015 12:35 PM WARP KNITTER Respiratory Rate 12 04/19/2015 12:35 PM WARP KNITTER Oxygen Saturation 100% 04/19/2015 1:00 PM WARP KNITTER Inhaled Oxygen Concentration - - Weight 91.6 kg (202 lb) 04/19/2015 12:35 PM WARP KNITTER Height 185.4 cm (6' 1 ) 04/19/2015 12:35 PM WARP KNITTER Body Mass Index 26.65 04/19/2015 12:35 PM WARP KNITTER Plan of Treatment Health Maintenance Due Date [...]
[2024-07-05 12:30] VITALS: BP 132/83; PULSE 75; RESP 18; TEMP 36.4; O2SAT 100
[2024-07-05 12:47] LABS: EDCOVIDSCREEN Negative (Negative); EDINFLUASCREEN Negative (Negative); EDINFLUBSCREEN Negative (Negative)
--- NOTE | 2024-07-05 12:59 | ED_ITS ---
HPI - URI/Sore Throat General Chief Complaint: Upper Respiratory Infection Stated Complaint: cough Source: patient Mode of arrival: ambulatory Limitations: no limitations History of Present Illness HPI Narrative: 48-year-old male presents to [facility] with complaints of productive cough of green colored phlegm and sore throat for the past 3 days. Patient reports that his children and had influenza a 2-3 weeks ago but patient was tested at that time and results were negative. Patient reports that he has been taking TheraFlu with minimal relief. Patient reports intermittent episodes of dizziness. Patient denies body aches, chills, fever, nausea vomiting or diarrhea. Patient denies recent travel. Patient is nonsmoker. MD elicited complaint: cough and sore throat Onset (ago): day(s) (3) Able to tolerate fluids by mouth: Yes Exacerbating factors: swallowing Treatments prior to arrival: cold medicine Related Data Home Medications ?Medication ?Instructions ?Recorded ?Confirmed ?Last Taken ?Type cholecalciferol (vitamin D3) 25 25 mcg PO DAILY 12/07/22 10/05/23 11/28/22 History mcg (1,000 unit) tablet (Vitamin D3) krill 500 mg-omega-3 150 mg-dha 45 1 cap PO DAILY 12/07/22 10/05/23 11/28/22 History mg-epa 75 xf-avafbxd-bhyae capsule (krill oil) Allergies Allergy/AdvReac Type Severity Reaction Status Date / Time cyclobenzaprine Allergy Severe Seizure Verified 07/05/24 12:30 shellfish derived Allergy Unknown Rash Verified 07/05/24 12:30 Review of Systems Constitutional: Constitutional: Denies chills, Denies fatigue, Denies fever(s) and Denies weakness ENT: Denies dizziness, Denies epistaxis, Denies nasal congestion and Reports sore throat Respiratory: Respiratory: Reports cough, Denies dyspnea and Denies wheezing Gastrointestinal: Gastrointestinal: Denies diarrhea, Denies nausea and Denies vomiting Integumentary/Breasts: Skin/Breast: Denies pruritus, Denies erythema and Denies rash Neurologic: Denies vertigo, Reports dizziness, Denies syncope and Denies headache(s) [facility] Past Medical History Medical History Bowel obstruction Asthma Scrotal mass Patient denies significant medical history Surgical History Surgical History H/O foot surgery Previous back surgery 2007 herniated disc Family History Family History Father Carcinoma of colon Other Diabetes mellitus Hypertension Social History Social History Smoking status: Former smoker Tobacco type: cigarettes Second hand tobacco smoke exposure: No Alcohol intake: never Substance use: never Substance use type: does not use Lack of Transportation: No Lack of Food: Never True Current Housing: I Have Housing Concerned About Future Housing: No Difficulty Paying Gas/Electric Bills: No Difficulty Paying for Meds: No Currently Unemployed: No Education: High School Diploma/GED Difficulty w/ Childcare or Family Care: No Living arrangements: with family Gender identity (if verbalized by the patient): Male Sexual Orientation (if Verbalized by the Patient): Straight or Heterosexual Spiritual care concerns: No Agree to blood products: Yes Comments At time of signature, I agree with nursing past medical, surgical, social and family history. There is no relevant family history pertinent to the presenting complaint. Exam Const: General: healthy appearing and no acute distress Nutritional Appearance: well nourished Orientation/consciousness: patient oriented x3 Limitations: no limitations HENMT: Head: normal to inspection Ears: external ears normal, TM's normal bilaterally and EAC's normal Face/Nose/Sinus: Normal external nose present Mouth: Yes Normal oral and palatal mucosa present and Yes moist mucous membranes Teeth and gingiva: dentition normal Throat: uvula midline Other: Moderate erythema noted to posterior oropharynx Eyes: Conjunctivae: conjunctivae normal Neck: Neck: normal visual inspection Resp: Effort & Inspection: normal respiratory effort and not labored Auscultation: clear to auscultation bilaterally, no crackles, no rales, no rhonchi and no wheezes Cardio: Rate: regular rate Rhythm: regular rhythm Heart sounds: no murmurs Skin: General skin exam: normal color Rashes: no rashes Neuro: General: patient oriented x3 and moves all extremities Speech: normal speech Gait exam (Neuro): Normal gait present Extrem: General: normal to inspection Psych: Affect: normal affect Course Course Level of Care: Express Care Visit Vital Signs Vital signs: Vital Signs Temperature 36.4 C 07/05/24 12:30 Pulse Rate 75 07/05/24 12:30 Respiratory Rate 18 07/05/24 12:30 Blood Pressure 132/83 07/05/24 12:30 Pulse Oximetry 100 07/05/24 12:30 Oxygen Delivery Room Air 07/05/24 12:30 Temperature 36.4 C 07/05/24 12:30 Pulse Rate 75 07/05/24 12:30 Respiratory Rate 18 07/05/24 12:30 Blood Pressure 132/83 07/05/24 12:30 Pulse Oximetry 100 07/05/24 12:30 Oxygen Delivery Room Air 07/05/24 12:30 MDM - URI/Sore Throat MDM Narrative Medical decision making narrative: Discussed negative lab results with patient. Educated patient take steroids as prescribed and to take cough medication as needed. Instructed patient to follow-up with primary care provider if symptoms not improve. patient understands that symptoms are likely viral at this time Differential Diagnosis Differential diagnosis: Likely upper respiratory infection, otitis media and sinusitis Lab Data Labs: Lab Results 07/05/24 Range/Units 12:45 POC Influenza A Ag Negative (Negative) POC Influenza B Ag Negative (Negative) POC SARS CoV-2 Ag Negative (Negative) Critical Care Time Critical Care Time Critical Care Time: No Discharge Plan Discharge Clinical Impression: Viral infection Patient Disposition: Home, Self-Care Condition: Stable Instructions: Viral Syndrome (ED) Additional Instructions: Rest increase fluids Take Medrol Dosepak as prescribed Take benzonatate as needed for cough Follow-up with primary care provider if symptoms not improved Proceed to the emergency room symptoms worsen Patient Language: Sudanese Prescriptions: New methylprednisolone [Medrol (Tereso)] 4 mg tablets,dose pack See Rx Instructions .ROUTE .COMPLEX Qty: 21 0RF Rx Instructions: orally per package directions benzonatate 100 mg capsule 100 mg PO TID PRN (Reason: cough) Qty: 20 0RF No Action cholecalciferol (vitamin D3) [Vitamin D3] 25 mcg (1,000 unit) Tablet 25 mcg PO DAILY krill oil [id number] mg Capsule 1 cap PO DAILY Follow-up/Referrals: Gladis Higginbotham MD [Primary Care Provider] - Time of Disposition: 13:09
[2024-07-05 13:08] LABS: EDSTREPNEGPOS1 Negative (Negative)
== END 2024-07-05 13:10 | disposition home or self-care (01) ==
PROVIDERS: Emergency Provider Nurse Practitioner Family; PCP Family Medicine
DX: B34.9 Viral infection, unspecified (principal); Z87.891 Personal history of nicotine dependence; Z20.822 Contact with and (suspected) exposure to COVID-19
CPT/HCPCS: 87081; 87426; 87804; 87880; 99213; G0463

== ENCOUNTER 2025-04-06 08:23 | Outpatient (CLI) | payer BC, SELFPAY | END 2025-04-06 08:24 | disposition home or self-care (01) | PROVIDERS: PCP Family Medicine; Visit Provider Surgery | DX: K40.90 Unilateral inguinal hernia, without obstruction or gangrene, not specified as recurrent (principal); Z01.818 Encounter for other preprocedural examination | CPT/HCPCS: 36415; 86850; 86900; 86901 ==

== ENCOUNTER 2025-04-09 03:44 | Day surgery (SDC) | payer BC, SELFPAY ==
[2025-04-03 14:40] VITALS: BMI 27.3
--- NOTE | 2025-04-03 14:51 | PC.NURSE ---
[facility] has started construction of its new state of the art ER which will open Spring 2026. With this, we anticipate parking may be a challenge for some our surgical patients and families. Parking spaces are limited but are available for all Surgical, obstetrics, and ER patients sharing this lot. If you arrive and find you are having a hard time finding a parking space, please note that we understand the challenges, please drive around the hospital and park near Hospital Entrance 1. When you enter this entrance, you can ask a volunteer to direct or take you back to the surgical waiting area to check in. We appreciate everyone?s understanding of these expected challenges while we build for your future. Report to the Outpatient Waiting Room, entrance under the green pavilion located off [address], at time 1000 on date 04-09-25. Planned Procedure Time: 1200.? Time changes happen often and if your time is changed the preop area will call you the afternoon before. - You and your visitor will be asked to self-screen and do not enter if you have any COVID symptoms. Please call surgeon if you need to reschedule. - A mask is optional within the hospital at this time. Patients may have clear liquids (water, carbonated beverages, clear teas, apple juice) until 3 hours prior to surgery with a maximum of 20 ounces. - No food from midnight until time of surgery and no smoking, or chewing tobacco (or any form of nicotine). No chewing gum, candy or mints. - Infants may have breast milk until 4 hours before surgery, infant formula 6 hours prior to surgery. - Children will be allowed to drink immediately following surgery.? If applicable, please bring a bottle or sippy cup to assist with drinking. Juice, water, soda, and popsicles are readily available.? For infants on formula, please bring formula the day of surgery.? Pacifiers are allowed. Take only the following medications with a SIP of water on the morning of surgery: N/A DO NOT STOP ANY OF YOUR OTHER PRESCRIPTION MEDICATIONS PRIOR TO SURGERY EXCEPT THE FOLLOWING Hold all vitamins and supplements for 3 days per anesthesiologist. Medications to discontinue per physician VITAMINS AND SUPPLEMENTS Date to take last dose 04/05/25 LAST DOSE Please no make-up, nail icelandic, hairspray, perfume, deodorant, or body powder the day of surgery.? No jewelry (including any body piercings) or valuables the day of surgery, leave them at home.? Please take a shower or bath the night before, or the morning of, surgery with an antibacterial soap.? Wear comfortable, loose fitting clothing.? Children are encouraged to wear pajamas. - Jewelry must be removed prior to entering the operating room.? Rings and piercings that are not removed may be cut off. - The hospital will not accept responsibility for valuables.? - Please leave all valuables, including medications, at home the day of surgery. If you are going home after surgery, a licensed courier delivery driver must drive you home.? - NO public transportation without another adult if you receive anesthesia. - We recommend that an adult stay with you for 24 hours following discharge. - We also recommend that you do not drive, make important decision, drink alcoholic beverages, or take any drugs that were not prescribed by your health care provider for at least 24 hours after your discharge time. For Pediatric surgeries, we recommend two adults accompany the child home. Follow any additional instructions given to you from your surgeon. Telephone instructions given to HINA TADEO and asked if any additional questions and then verbalized understanding. Patient advised to call surgeon office or pre surgery nurse liaison [phone] if any additional questions.
[2025-04-09] VITALS (10 sets, daily range): BP systolic 108–153; BP diastolic 65–91; PULSE 52–72; RESP 12–20; TEMP 36.5–36.6; O2SAT 96–100
--- OUTSIDE RECORDS SUMMARY | 2025-04-09 03:47 | XMS_ITS | Clinical Summary ---
Author Organization [facility] Address [address] [place] [address] Care Team Providers Care Scuba Diving Instructor Name Role Phone Unavailable Primary Care Provider Unavailabl e Source Comments [facility],non-owned Affiliates and Associated Physician Practices is amultiple site organization consisting of ambulatory clinics and hospital sitesin [place], [place], [place] and [place]. This disclosure is being madepursuant to the Care Everywhere program and may not contain all information available regarding this patient. Last updated 18.[facility] [email or web address] Allergies Active Allergy Reactions Criticality Noted Date Comments Cyclobenzaprine Other Low 04/19/2015 Seizure, hives, Social History Tobacco Use Types Packs/Day Years Used Date Smoking Tobacco: Never Alcohol Use Standard Drinks/Week Comments No 0 (1 standard drink = 0.6 oz pur e alcohol) Sex and Gender Information Value Date Recorded Sex Assigned at Not on file Legal Sex Male 6:06 PM PUBLIC ACCOUNTANT Gender Identity Not on file Sexual Orientation Not on file Last Filed Vital Signs Vital Sign Reading Time Taken Comments Blood Pressure 132/82 04/19/2015 1:00 PM PUBLIC ACCOUNTANT Pulse 68 04/19/2015 1:00 PM PUBLIC ACCOUNTANT Temperature 36.6 C (97.9 F) 04/19/2015 12:35 PM PUBLIC ACCOUNTANT Respiratory Rate 12 04/19/2015 12:35 PM PUBLIC ACCOUNTANT Oxygen Saturation 100% 04/19/2015 1:00 PM PUBLIC ACCOUNTANT Inhaled Oxygen Concentration - - Weight 91.6 kg (202 lb) 04/19/2015 12:35 PM PUBLIC ACCOUNTANT Height 185.4 cm (6' 1) 04/19/2015 12:35 PM PUBLIC ACCOUNTANT Body Mass Index 26.65 04/19/2015 12:35 PM PUBLIC ACCOUNTANT Plan of Treatment Health Maintenance Due Date [...] of 3 - 19+ 3-dose series) 07/29/1995 DEPRESSION SCREENING 04/30/2024 COVID-19 VACCINE (1 - 2024-2 6 season) 2024 INFLUENZA VACCINE (#1) 2024 ZOSTER VACCINE (1 of 2) 2026 HIB VACCINE Aged Out No longer eligi ble based on patient's age to complete this topic HPV VACCINE Aged Out No longer eligi ble based on patient's age to complete this topic MENINGOCOCCAL (Group B) VACC INE SHARED DECISION-MAKING Aged Out No longer eligibl e based on patient's age to complete this topic MENINGOCOCCAL GROUPS A/C/Y/W VACCINE Aged Out No longer eligible b ased on patient's age to complete this topic PNEUMOCOCCAL VACCINE Aged Out No long er eligible based on patient's age to complete this topic
[2025-04-09] MEDS: ACETAMINOPHEN 500 MG TABLET 1000 MG PO (10:10)
[2025-04-09] MEDS: LACTATED RINGERS 1,000 ML 30 ML IV CONT ×2 (10:15→13:44)
[2025-04-09] MEDS: KETOROLAC 15 MG/ML VIAL (*BKC) IV PUSH (10:17)
--- NOTE | 2025-04-09 11:51 | SUR.PREOP ---
PT AND SPOUSE NOTIFIED OF DELAY.
--- NOTE | 2025-04-09 12:18 | PM.IMHP2 ---
H&P: HPI History of Present Illness Date/Time: 04/09/25 12:18 Chief Complaint: Left inguinal hernia Narrative: Ho is a 49 y/o male who presents with LLQ pain at the request of Dr. Higginbotham. He reports about 1 week ago, he kicked a soccer ball and had sudden left groin pain with associated left testicle pain. He denies a bulge. He feels the pain is worse with full body stretch or running. He is having regular BM's without difficulty. He has a surgical history of vasectomy in 2016. U/S scrotum Doppler was done at on 08/26/24 and was unremarkable. Review of Systems Review of Systems: All systems reviewed & are unremarkable except as noted in HPI and below PMFSH Past Medical History Medical History Allergies Hernia Bowel obstruction Asthma Scrotal mass Patient denies significant medical history Surgical History Surgical History S/P rotator cuff repair (~12/30/23) H/O foot surgery Previous back surgery 2007 herniated disc Family History Family History Father Carcinoma of colon Other Diabetes mellitus Hypertension Social History Social History Smoking status: Former smoker Tobacco type: cigarettes Second hand tobacco smoke exposure: No Alcohol intake: never Substance use: never Substance use type: does not use Lack of Transportation: No Lack of Food: Never True Current Housing: I Have Housing Concerned About Future Housing: No Difficulty Paying Gas/Electric Bills: No Difficulty Paying for Meds: No Currently Unemployed: No Education: High School Diploma/GED Difficulty w/ Childcare or Family Care: No Living arrangements: with family Gender identity (if verbalized by the patient): Male Sexual Orientation (if Verbalized by the Patient): Straight or Heterosexual Spiritual care concerns: No Agree to blood products: Yes Meds Home Medications and Allergies Home Medications ?Medication ?Instructions ?Recorded ?Confirmed ?Type cholecalciferol (vitamin D3) 25 25 mcg PO DAILY 12/07/22 04/09/25 History mcg (1,000 unit) tablet (Vitamin D3) krill 500 mg-omega-3 150 mg-dha 45 1 cap PO DAILY 12/07/22 04/09/25 History mg-epa 75 [id number]-xqnfm capsule (krill oil) thiamine HCl (vitamin B1) 100 mg 100 mg PO QID 04/03/25 04/09/25 History tablet (Vitamin B-1) Allergies Allergy/AdvReac Type Severity Reaction Status Date / Time cyclobenzaprine Allergy Severe Seizure Verified 04/09/25 11:15 shellfish derived Allergy Unknown Rash Verified 04/09/25 11:15 Vital Signs Vital Signs - 24 hr 04/09/25 10:00 Temperature 36.5 C Pulse Rate 66 Respiratory Rate 16 Blood Pressure 153/91 H Pulse Oximetry 100 Oxygen Delivery Room Air Exam Const: General: cooperative, comfortable and no acute distress Resp: Auscultation: clear to auscultation bilaterally Cardio: Rate: regular rate Rhythm: regular rhythm GI: Inspection: normal to inspection GI Palp: No abdominal tenderness, Yes Soft to palpation and Yes Hernia present Other: left inguinal hernia moderate reducible Assessment and Plan Assessment and plan (1) Left inguinal hernia: Code(s): K40.90 - Unilateral inguinal hernia, without obstruction or gangrene, not specified as recurrent Status: Acute Assessment and Plan: will set up for robotic assisted left inguinal hernia repair with mesh
--- NOTE | 2025-04-09 12:20 | WPDHPUPDATE1 ---
History and Physical Update Update Date/Time: 04/09/25 12:20 History and Physical has been reviewed, including an updated exam of the patient. There are NO changes in the patient's condition. Risks, benefits, and alternatives have been discussed and questions answered. Patient agrees to proceed with procedure.
--- NOTE | 2025-04-09 12:30 | WPDANESEPPF ---
Anes - Initial Pre Proc Eval Procedure: Operation Date: 04/09/25 12:00 Proposed Procedures p Robotic Left Inguinal Hernia Repair with Mesh - Juanis Smith MD Date/Time: 04/09/25 12:30 Surgeon: Juanis Smith MD Pre Op Diagnosis: Lt Ing Hernia Patient Data Age: 49 Gender: M Height: 1.85 m Weight: 93.7 kg Last Vital Signs Temp 36.5 C 04/09/25 10:00 Pulse 66 04/09/25 10:00 Resp 16 04/09/25 10:00 BP 153/91 H 04/09/25 10:00 Pulse Ox 100 04/09/25 10:00 O2 Del Method Room Air 04/09/25 10:00 Allergies Allergy/AdvReac Type Severity Reaction Status Date / Time cyclobenzaprine Allergy Severe Seizure Verified 04/09/25 11:15 shellfish derived Allergy Unknown Rash Verified 04/09/25 11:15 Home Medications ?Medication ?Instructions ?Recorded ?Confirmed ?Type cholecalciferol (vitamin D3) 25 25 mcg PO DAILY 12/07/22 04/09/25 History mcg (1,000 unit) tablet (Vitamin D3) krill 500 mg-omega-3 150 mg-dha 45 1 cap PO DAILY 12/07/22 04/09/25 History mg-epa 75 [id number]-qcgcf capsule (krill oil) thiamine HCl (vitamin B1) 100 mg 100 mg PO QID 04/03/25 04/09/25 History tablet (Vitamin B-1) Patient hx anesthesia problems: none Family hx anesthesia problems: none Results Review: All pre-operative results and documents have been reviewed as part of the pre-operative evaluation. [facility] Past Medical History Medical History Allergies Hernia Bowel obstruction Asthma Scrotal mass Patient denies significant medical history Surgical History Surgical History S/P rotator cuff repair (~12/30/23) H/O foot surgery Previous back surgery 2007 herniated disc Family History Family History Father Carcinoma of colon Other Diabetes mellitus Hypertension Social History Social History Smoking status: Former smoker Tobacco type: cigarettes Second hand tobacco smoke exposure: No Alcohol intake: never Substance use: never Substance use type: does not use Lack of Transportation: No Lack of Food: Never True Current Housing: I Have Housing Concerned About Future Housing: No Difficulty Paying Gas/Electric Bills: No Difficulty Paying for Meds: No Currently Unemployed: No Education: High School Diploma/GED Difficulty w/ Childcare or Family Care: No Living arrangements: with family Gender identity (if verbalized by the patient): Male Sexual Orientation (if Verbalized by the Patient): Straight or Heterosexual Spiritual care concerns: No Agree to blood products: Yes Anes - Eval Final PreProcedure Day of Procedure 04/09/25 12:30 Patient weight: normal Heart: regular rate and rhythm Lungs: clear to auscultation Airway: Mallampati scale class II Neurological: alert and oriented Last oral intake: >/= 8 hours ASA classification: II Emergent: no Anesthetic plan: proceed Anesthesia type and monitoring: general ETT and standard monitoring Results Review: All pre-operative results and documents have been reviewed as part of the pre-operative evaluation. Informed Consent: The patient's anesthetic plan and its attendant risks and benefits were discussed with the patient/family/POA. Questions were solicited and answers provided to the satisfaction of the patient/family/POA.
[2025-04-09] MEDS: ceFAZolin 2 GM in SODIUM CHLORIDE 0.9% IV 50 ML 100 ML IVPB (12:36)
[2025-04-09] MEDS: BUPIVACAINE/EPINEPHRINE 0.5% 50 ML VIAL 30 ML INFILTRATE (13:05)
--- NOTE | 2025-04-09 13:54 | P.OP_ITS ---
Procedure Note - Detailed Date of Procedure 04/09/25 Pre-op Diagnosis Left inguinal hernia Post-op Diagnosis Same Procedure Performed robotic assisted left inguinal hernia repair with mesh Surgeon Juanis Smith MD Anesthesia General Indications 49 y/o M c LIH and worsening groin pain over last few months Findings indirect left inguinal hernia Description of Procedure Patient was brought into the operating room and placed in the supine position. After adequate induction of general anesthesia, the patient was prepped and draped in normal sterile fashion. A time-out was then done to verify the patient's identity, as well as the procedure being performed. I began by making a 8 mm incision in the supraumbilical region, a Veress needle was then placed into the peritoneal cavity. CO2 gas was then insufflated and after adequate pneumoperitoneum was achieved, the Veress needle was removed. I then placed an 8 mm trocar through this incision. I then placed the endoscope through this trocar site and under direct visualization placed 2 further 8 mm ports in the right and left mid abdomen. The [employer] robot was then docked to the 3 trocar sites. I then scrubbed out and went to the robotic console. Upon examining the pelvis, it was noted that the patient had a moderate sized left inguinal hernia. The right side was examined and no hernia defect was noted. I began by making a preperitoneal flap approximately 6 cm superior to the defect. This flap was carried medially past the umbilical ligaments and laterally to the transversalis. It then began dissection of my medial compartment taking this down to the pubic tubercle. I then began the lateral dissection taking this down to the transversalis fascia. Once these compartments were achieved, I began dissection around the cord structures. A moderate sized indirect hernia was noted at this point. Using careful dissection, was able to reduce indirect hernia sac off the cord structures. Once this was adequately done, I went ahead and placed a large piece of 3D Max mesh into the abdominal cavity. The mesh was carefully positioned, centering the center of the mesh over the indirect defect. Once this was done, was very satisfied with our repair. Using 3-0 Vicryl sutures, I tacked the mesh medially to Roman's ligament. Two lateral sutures were placed from the mesh to the transversalis fascia. I then closed the peritoneal flap with a running 2.0 V Lock suture. The abdomen was then desufflated, and all ports were removed. All incisions were then closed with the 4.0 monocryl suture. Dermabond was placed on each wound. The patient tolerated the procedure well, was extubated in the operating room postoperatively, and will now be transferred to the recovery room in stable condition. Implants large 3DMax mesh Estimated Blood Loss 5 Drains No Packing No Pathology None sent Complications No immediate complications Condition Stable Disposition PACU [facility] Billing Surgery - Charge Forward: Surgery Billing
[2025-04-09] MEDS: fentaNYL CITRATE INJ (*CRX) 100 MCG/2 ML VIAL 25 MCG IV PUSH ×4 (14:21→15:01)
[2025-04-09] MEDS: oxyCODONE HCL (*CRX) 5 MG TAB IR PO (14:59)
== END 2025-04-09 16:20 | disposition home or self-care (01) ==
PROVIDERS: PCP Family Medicine; Visit Provider Surgery
PROC: 8E0Y4CZ Robotic Assisted Procedure of Lower Extremity, Percutaneous Endoscopic Approach (ICD-10-PCS; CPT 49650; principal; 2025-04-09 12:00)
DX: K40.90 Unilateral inguinal hernia, without obstruction or gangrene, not specified as recurrent (principal); J45.909 Unspecified asthma, uncomplicated; Z98.890 Other specified postprocedural states; Z98.1 Arthrodesis status; Z87.891 Personal history of nicotine dependence; Z80.0 Family history of malignant neoplasm of digestive organs
CPT/HCPCS: 49650; S2900; J0690; A9270; C1781; J1100; J1885; J2250; J2270; J2405; J2704; J3010; J7120